=== PATIENT | female | born 1995 | race Caucasian/White ===

== ENCOUNTER 2018-05-18 17:41 | Emergency (ER) | payer SELFPAY ==
[2018-05-18 17:54] VITALS: BP 119/79
[2018-05-18] MEDS ORDERED: AMOXICILLIN TR/POT CLAVULANATE 500-125 MG TAB PO ONE (19:08)
[2018-05-18] MEDS ORDERED: AMOXICILLIN TRIHYDRATE 500 MG CAPSULE PO ONE (19:09)
--- NOTE | 2018-05-18 19:12 | ER Document Report ---
HPI - HPI Pain Level: 2 Notes: Patient is a 22-year-old female who presents with chief complaint of bilateral ear pain, jaw pain, sinus pain and congestion times 1 month. Patient denies any fever, nausea, vomiting or diarrhea. Patient reports she has tried taking [id number] ibuprofen without relief. - CONSTITUTIONAL Constitutional: DENIES: Fever, Chills - EENT EENT: REPORTS: Ear Pain. DENIES: Sore Throat, Eye problems - NEURO Neurology: DENIES: Headache, Weakness, Vision blurred, Dizzinesss / Vertigo - CARDIOVASCULAR Cardiovascular: DENIES: Chest pain - RESPIRATORY Respiratory: DENIES: Trouble Breathing, Coughing - GASTROINTESTINAL Gastrointestinal: DENIES: Abdominal Pain, Black / Bloody Stools - URINARY Urinary: DENIES: Dysuria, Urgency, Frequency - MUSCULOSKELETAL Musculoskeletal: DENIES: Extremity pain Past Medical History - Social History Smoking Status: Never Smoker Chew tobacco use (# tins/day): No Frequency of alcohol use: Occasional Drug Abuse: None Family History: Reviewed & Not Pertinent Patient has suicidal ideation: No Patient has homicidal ideation: No Renal/ Medical History: Denies: Hx Peritoneal Dialysis Past Surgical History: Reports: Hx Appendectomy, Hx Orthopedic Surgery - jaw surgery Vertical Provider Document - CONSTITUTIONAL Notes: PHYSICAL EXAMINATION: GENERAL: Well-appearing, well-nourished and in no acute distress. HEAD: Atraumatic, normocephalic. EYES: Pupils equal round extraocular movements intact, conjunctiva are normal. ENT: Nares patent, tenderness to palpation over maxillary sinuses, no pain over the frontal sinuses. Bilateral TMs appear pearly ojeda but bulging. Copious cerumen noted to left ear canal. Oropharynx nonerythematous, uvula midline, no evidence of CUT OFF SAWYER LOG. NECK: Normal range of motion LUNGS: No respiratory distress, lung sounds clear to auscultation bilaterally Musculoskeletal: Normal range of motion NEUROLOGICAL: Normal speech, normal gait. PSYCH: Normal mood, normal affect. SKIN: Warm, Dry, normal turgor, no rashes or lesions noted. - INFECTION CONTROL TRAVEL OUTSIDE OF THE [place] IN LAST 30 DAYS: No Course - Re-evaluation Re-evalutation: 05/18/18 19:10 History and examination consistent with acute sinusitis. Patient will be placed on Augmentin p.o. she will take ibuprofen for the pain and patient will also be instructed to take [id number] Sudafed D. - Vital Signs Vital signs: Temp Pulse Resp BP Pulse Ox 98.5 F 66 16 119/79 98 05/18/18 17:52 05/18/18 17:52 05/18/18 17:52 05/18/18 17:52 05/18/18 17:52 Discharge - Discharge Clinical Impression: Sinusitis Qualifiers: Sinusitis location: maxillary Chronicity: acute Recurrence: non-recurrent Qualified Code(s): J01.00 - Acute maxillary sinusitis, unspecified Condition: Stable Disposition: HOME, SELF-CARE Additional Instructions: Sinusitis You have sinusitis, an infection of the sinus cavities of the face. The sinuses are air-filled chambers which open into the inside of the nose. Bacteria and pus fill a sinus, causing pain, drainage, and fever. Sinusitis is treated with antibiotics. Often, expectorants (to thin the sinus mucous) or decongestants (to reduce swelling) are prescribed as well. Healing requires seven to 10 days. Avoid chemical fumes, pollens, dusts, and smoke (especially cigarette smoke ). Keep the air humidified in your bedroom and work area and take plenty of liquids by mouth. This condition can be serious if the infection spreads. If your symptoms worsen, or if you develop severe headache, high fever, stiff neck, or a rash, you must call the doctor or return for re-evaluation. Prescriptions: Amox Tr/Potassium Clavulanate [Augmentin 875-125 mg Tablet] 1 tab PO BID #20 tablet
== END 2018-05-18 19:34 | disposition home or self-care (01) ==
LOC: ER 17:41
DX: J01.00 Acute maxillary sinusitis, unspecified (principal); H92.03 Otalgia, bilateral; R68.84 Jaw pain; R51 Headache; R09.81 Nasal congestion
CPT/HCPCS: 99283